=== PATIENT | female | born 1985 | race African-American/Black ===

== ENCOUNTER 2021-07-07 08:35 | Outpatient (REF) | payer OTHER, SELFPAY | END 2021-07-07 08:36 | disposition home or self-care (01) | LOC: HO.LAB 08:35 | PROVIDERS: Visit Provider Internal Medicine | DX: Z20.822 Contact with and (suspected) exposure to COVID-19 (principal) | CPT/HCPCS: C9803; U0003; U0005 ==

== ENCOUNTER 2023-05-26 09:18 | Emergency (ER) | payer OTHER, SELFPAY ==
[2023-05-26 09:26] VITALS: BP 108/78; BP 114/60; PULSE 92; PULSE 95; RESP 18; TEMP 36.5; O2SAT 100; O2SAT 98; BMI 20.5
[2023-05-26 09:29] VITALS: PULSE 69; RESP 16
[2023-05-26] MEDS: ondansetron HCL 4 MG/2 ML VIAL IVPUSH ×2 (09:45→11:01)
[2023-05-26] MEDS: diphenhydrAMINE HCL 50 MG/ML VIAL IVPUSH (09:45)
[2023-05-26] MEDS: Famotidine/PF 20 MG/2 ML VIAL IVPUSH (09:45)
[2023-05-26] MEDS: 0.9 % Sodium Chloride 1,000 ML 999 ML IV (09:45)
--- NOTE | 2023-05-26 09:59 | ED_ITS ---
HPI - General Adult General Chief complaint: Nausea/Vomiting/Diarrhea Stated complaint: Vomiting, abd pain per EMS Time Seen by Provider: 05/26/23 09:35 Source: patient Mode of arrival: ambulatory Limitations: no limitations History of Present Illness HPI narrative: 37-year-old female presents to the ED presents to ED for vomiting and generalized abdominal pain since this morning. Patient states she had some food from the barbecue may have caused symptoms. No one else at home having symptoms of venous same food. Patient denies any genitourinary symptoms. Related Data Previous Rx's Medication Instructions Recorded famotidine 20 mg tablet (Pepcid) 20 mg PO BID 10 days #20 tabs 05/26/23 Allergies Allergy/AdvReac Type Severity Reaction Status Date / Time amoxicillin [From AUGMENTIN] Allergy Unknown HIVES Verified 05/26/23 09:26 clavulanic acid Allergy Unknown HIVES Verified 05/26/23 09:26 [From AUGMENTIN] codeine [CODEINE] Allergy Unknown RASH Verified 05/26/23 09:26 Review of Systems Review of Systems: Abdominal pain and vomitting. Yes all other systems are reviewed and are negative [facility] Social History Social History Alcohol intake: current Alcohol intake frequency: a few times a week Smoked in Last 30 Days: No Use of substances other than those prescribed or required for medical reasons: Yes Substance Use Type: Marijuana Substance Use Frequency: Chronic Longstanding Advance Directives: No Physical Exam ED Vital Signs: Vital Signs - 24 hr 05/26/23 09:26 05/26/23 09:29 05/26/23 12:04 Temperature 97.7 F 98.2 F Pulse Rate 95 69 74 Respiratory Rate 18 16 16 Blood Pressure 114/60 111/51 L Pulse Oximetry 100 98 Oxygen Delivery Method Room Air Room Air Room Air 05/26/23 14:36 Temperature 97.2 F Pulse Rate 84 Respiratory Rate 12 Blood Pressure 115/64 Pulse Oximetry 97 Oxygen Delivery Method Room Air BMI result Body Mass Index 20.5 Const General: cooperative, healthy appearing, comfortable, no acute distress, well developed, alert, awake and Physically active Orientation/consciousness: oriented to person, oriented to place, oriented to time and patient oriented x3 HENMT Head: Yes normal to inspection, Yes No palpable skull fracture present, Yes norm ocephalic, Yes atraumatic and No abrasion Eyes General: appearance normal, both eyes and all related structures Neck Neck: Yes normal visual inspection, Yes full ROM, Yes no lymphadenopathy, Yes no meningeal signs, Yes trachea midline, Yes supple, No anterior neck swelling and No tender Chest Chest palpation & inspection: normal inspection of the chest and normal palpation of entire chest wall Resp Effort & Inspection: normal respiratory effort and able to speak in complete sentences Auscultation: clear to auscultation bilaterally Cardio Jugular venous distension: no JVD Heart sounds: S1 normal heart sound present and S2 normal heart sound present GI Other: Negative for any generalized abdominal tenderness on palpation. Patient retchi ng Inspection: Yes normal to inspection and No abdominal wall ecchymosis Palpation (GI): Soft to palpation, not firm, nontender, no guarding and not rigid General: No CVA tenderness and Yes no CVA tenderness Back/Spine/Pelvis Back: no CVA tenderness, No CVA tenderness and No back tenderness Skin General skin exam: no rashes or lesions noted, elasticity normal and turgor normal Neuro General: oriented to person, oriented to place, oriented to time, patient oriented x3, gait normal, tone normal, moves all extremities, Normal light touch and pain sensation, no meningeal signs, no focal motor deficits, CN's II-XI intact bilaterally and normal sensation to monofilament Extrem General: Yes normal to inspection and Yes full ROM Psych Appearance: grossly normal, well kempt and not disheveled Medications Administered Discontinued Medications Generic Name Dose Route Start Last Admin Trade Name Freq PRN Reason Stop Dose Admin Diphenhydramine HCl 50 mg 05/26/23 09:39 05/26/23 09:45 Diphenhydramine Hcl 50 Mg/Ml Vial IVPUSH 05/26/23 09:40 50 mg ONCE ONE Administration Famotidine 20 mg 05/26/23 09:39 05/26/23 09:45 Famotidine/Pf 20 Mg/2 Ml Vial IVPUSH 05/26/23 09:40 20 mg ONCE ONE Administration Haloperidol Lactate 5 mg 05/26/23 10:27 05/26/23 11:01 Haloperidol Lactate 5 Mg/Ml Vial IM 05/26/23 10:28 5 mg STAT STA Administration Sodium Chloride 1,000 mls @ 999 mls/hr 05/26/23 09:36 05/26/23 12:22 Ns IV 05/26/23 10:36 Infused .Q1H1M STA Infusion Ondansetron HCl 4 mg 05/26/23 09:36 05/26/23 09:45 Ondansetron Hcl 4 Mg/2 Ml Vial IVPUSH 05/26/23 09:37 4 mg ONCE ONE Administration Ondansetron HCl 4 mg 05/26/23 10:27 05/26/23 11:01 Ondansetron Hcl 4 Mg/2 Ml Vial IVPUSH 05/26/23 10:28 4 mg ONCE ONE Administration Medical Decision Making Medical Decision Making [facility] Narrative: 37-year-old female presents to ED for vomiting abdominal pain although there is no pinpoint tenderness on abdomen on exam. Patient states having before yesterday. Labs, Benadryl, Pepcid, Haldol and Zofran ordered. Patient later admitted there was alcohol drinking and marijuana smoking. 3:08pm; after receiving meds patient slept in the ED for multiple hours without any complaints. Abdominal exam on re-evaluation negative for any tenderness on palpation. Labs are normal. UA negative for infection and . Patient to be discharged. Presently no indication for abdominal CT scan imaging Differential Diagnosis Differential Diagnoses: The differential diagnosis associated with the presentation includes (Gastroenteritis, food poisoning, cyclic vomiting, gastritis, GERD, appendicitis, cholecystitis UTI, colitis, pancreatitis, ectopic , ovarian torsion, tubo-ovarian abscess,) Lab Data [facility] Lab Attestation statement: I reviewed the patient's lab results. 05/26/23 10:07 05/26/23 10:06 Labs: Lab Results 05/26/23 05/26/23 05/26/23 Range/Units 10:06 10:06 10:07 WBC 11.4 H (4.8-10.8) X10*3/uL RBC 4.41 (4.20-5.50) X10*6/uL Hgb 11.9 L (12.0-16.0) g/dl Hct 37.6 (37.0-47.0) % MCV 85.3 (80.0-98.0) fL MCH 27.0 (27.0-33.0) pg MCHC 31.6 (31.0-35.0) g/dl RDW 13.6 (11.0-16.0) % Plt Count 283 (160-400) X10*3/uL MPV 9.8 (9.4-12.3) fL Immature Gran % (Auto) 0.4 (0.0-0.4) % Neut % (Auto) 82.5 H (45-73) % Lymph % (Auto) 12.8 L (20-40) % [place] % (Auto) 3.4 (2-11) % Eos % (Auto) 0.3 (0-4) % Baso % (Auto) 0.6 (0-2) % Lymph # (Auto) 1.5 (1.2-4.9) X10*3/uL [place] # (Auto) 0.4 (0.1-1.2) X10*3/uL Eos # (Auto) 0.0 (0.0-0.4) X10*3/uL Baso # (Auto) 0.1 (0.0-0.2) X10*3/uL Abs Immat Gran (auto) 0.05 H (0.00-0.03) X10*3/uL Absolute Neuts (auto) 9.4 H (2.0-8.3) x10*3/uL Absolute Nucleated RBC 0.000 (0.0-0.012) X10*3/uL Nucleated RBC % (auto) 0.0 (0.0-0.2) /100WBC PT 12.1 (11.1-13.3) SEC INR 1.0 (0.9-1.1) APTT 24.2 L (26.0-36.4) SEC Sodium 144 (135-145) mmol/L Potassium 3.6 (3.3-5.1) mmol/L Chloride 111 H (96-108) mmol/L Carbon Dioxide 17 L (22-29) mmol/L Anion Gap 20 (12-20) BUN 12 (9-16) mg/dL Creatinine 0.72 (0.5-1.4) mg/dL Estim Creat Clear Calc 96.5 Estimated GFR > 60 Random Glucose 141 H (60-115) mg/dL Calcium 9.8 (8.4-10.2) mg/dL Total Bilirubin 0.5 (0.0-1.0) mg/dL AST 20 (5-31) U/L ALT 13 (0-31) U/L Alkaline Phosphatase 58 (39-117) U/L Total Protein 8.4 H (6.5-8.0) g/dL Albumin 4.5 (3.5-5.0) g/dL Lipase 27 (8-78) U/L Beta HCG, Quant < 2 mIU/mL Urine Color Urine Appearance Urine pH (5.0-9.0) Ur Specific [place] (1.005-1.025) Urine Protein (Neg-Trace) mg/dL Urine Glucose (UA) (Negative) mg/dL Urine Ketones (Negative) mg/dL Urine Blood (Negative) Urine Nitrite (Negative) Ur Leukocyte Esterase (Negative) Urine Test (NEGATIVE) 05/26/23 05/26/23 Range/Units 14:07 14:37 WBC (4.8-10.8) X10*3/uL RBC (4.20-5.50) X10*6/uL Hgb (12.0-16.0) g/dl Hct (37.0-47.0) % MCV (80.0-98.0) fL MCH (27.0-33.0) pg MCHC (31.0-35.0) g/dl RDW (11.0-16.0) % Plt Count (160-400) X10*3/uL MPV (9.4-12.3) fL Immature Gran % (Auto) (0.0-0.4) % Neut % (Auto) (45-73) % Lymph % (Auto) (20-40) % [place] % (Auto) (2-11) % Eos % (Auto) (0-4) % Baso % (Auto) (0-2) % Lymph # (Auto) (1.2-4.9) X10*3/uL [place] # (Auto) (0.1-1.2) X10*3/uL Eos # (Auto) (0.0-0.4) X10*3/uL Baso # (Auto) (0.0-0.2) X10*3/uL Abs Immat Gran (auto) (0.00-0.03) X10*3/uL Absolute Neuts (auto) (2.0-8.3) x10*3/uL Absolute Nucleated RBC (0.0-0.012) X10*3/uL Nucleated RBC % (auto) (0.0-0.2) /100WBC PT (11.1-13.3) SEC INR (0.9-1.1) APTT (26.0-36.4) SEC Sodium (135-145) mmol/L Potassium (3.3-5.1) mmol/L Chloride (96-108) mmol/L Carbon Dioxide (22-29) mmol/L Anion Gap (12-20) BUN (9-16) mg/dL Creatinine (0.5-1.4) mg/dL Estim Creat Clear Calc Estimated GFR Random Glucose (60-115) mg/dL Calcium (8.4-10.2) mg/dL Total Bilirubin (0.0-1.0) mg/dL AST (5-31) U/L ALT (0-31) U/L Alkaline Phosphatase (39-117) U/L Total Protein (6.5-8.0) g/dL Albumin (3.5-5.0) g/dL Lipase (8-78) U/L Beta HCG, Quant mIU/mL Urine Color Yellow Urine Appearance Clear Urine pH 7.5 (5.0-9.0) Ur Specific [place] 1.020 (1.005-1.025) Urine Protein Negative (Neg-Trace) mg/dL Urine Glucose (UA) Negative (Negative) mg/dL Urine Ketones 80 (Negative) mg/dL Urine Blood Negative (Negative) Urine Nitrite Negative (Negative) Ur Leukocyte Esterase Negative (Negative) Urine Test NEGATIVE (NEGATIVE) Independent Historian Clinical information obtained from an independent historian. History obtained from or confirmed by: Spouse (Partner) External Record Review External record reviewed: Other (Prior ED visit) Prescription Management I considered prescription management with: Other Discharge Plan Discharge Clinical Impression: Food poisoning, Gastroesophageal reflux disease Patient Disposition: Home, Self-Care Instructions: Gastroesophageal Reflux Disease (ED), Food Poisoning (ED), Abdominal Pain (ED) Additional Instructions: Return to the ED immediately for abdominal pain, dysuria, hematuria, flank pain, fever, chills, vaginal bleeding, inability to tolerate solid food/liquid, or any other concerning symptoms. Please follow-up with the primary care provider. Prescriptions: New famotidine [Pepcid] 20 mg tablet 20 mg PO BID 10 Days Qty: 20 0RF Stand Alone Forms: Work/School Release Interventions: ED Discharge Assessment Last Done: 05/26/23 15:31 Discharge Date/Time: 05/26/23 15:31 Print Language: Tajik
[2023-05-26 10:15] LABS: MANUAL DIFF FLAG NO
[2023-05-26 10:21] LABS: Basophils Absolute Auto 0.1 X10*3/uL (0.0-0.2); Basophils Percent Auto 0.6 % (0-2); Eosinophils Percent Auto 0.3 % (0-4); Hematocrit 37.6 % (37.0-47.0); Hemoglobin 11.9 g/dl (12.0-16.0); Imm Gran Abs Auto 0.05 X10*3/uL (0.00-0.03); Imm Gran Pct Auto 0.4 % (0.0-0.4); Lymphocytes Absolute Auto 1.5 X10*3/uL (1.2-4.9); Lymphocytes Percent Auto 12.8 % (20-40); Mean Corpuscular HGB Conc 31.6 g/dl (31.0-35.0); Mean Corpuscular Volume 85.3 fL (80.0-98.0); Mean Platelet Volume 9.8 fL (9.4-12.3); Monocytes Absolute Auto 0.4 X10*3/uL (0.1-1.2); Monocytes Percent Auto 3.4 % (2-11); Neutrophils Absolute Auto 9.4 x10*3/uL (2.0-8.3); Neutrophils Percent Auto 82.5 % (45-73); Platelet Count 283 X10*3/uL (160-400); Red Blood Count 4.41 X10*6/uL (4.20-5.50); Red Cell Distribution Width 13.6 % (11.0-16.0); White Blood Count 11.4 X10*3/uL (4.8-10.8)
[2023-05-26 10:29] LABS: Prothrombin Time 12.1 SEC (11.1-13.3)
[2023-05-26 10:32] LABS: Partial Thromboplastin Time 24.2 SEC (26.0-36.4)
[2023-05-26 10:50] LABS: Alanine Aminotransferase 13 U/L (0-31); Albumin Level 4.5 g/dL (3.5-5.0); Alkaline Phosphatase 58 U/L (39-117); Anion Gap 20 (12-20); Aspartate Amino Transferase 20 U/L (5-31); Bilirubin Total 0.5 mg/dL (0.0-1.0); Blood Urea Nitrogen 12 mg/dL (9-16); Calcium 9.8 mg/dL (8.4-10.2); Carbon Dioxide 17 mmol/L (22-29); Chloride 111 mmol/L (96-108); Creatinine Clr Calc Pharmacy 96.5; Estimated Glomerular Filt Rate > 60; Glucose Random 141 mg/dL (60-115); HCG Quantitative < 2 mIU/mL; Lipase 27 U/L (8-78); Potassium 3.6 mmol/L (3.3-5.1); Sodium 144 mmol/L (135-145); Total Protein 8.4 g/dL (6.5-8.0)
[2023-05-26] MEDS: Haloperidol Lactate 5 MG/ML VIAL IM (11:01)
[2023-05-26 12:04] VITALS: BP 111/51; PULSE 74; RESP 16; TEMP 36.8; O2SAT 98
[2023-05-26 14:15] LABS: Appearance Urine Clear; Color Urine Yellow; Glucose Urine UA Negative (Negative); Leukocyte Esterase Urine Negative (Negative); Nitrite Urine Negative (Negative); PH 7.5 (5.0-9.0); Urine Blood Negative (Negative); Urine Ketones 80 mg/dL (Negative); Urine Protein Negative (Neg-Trace)
[2023-05-26 14:36] VITALS: BP 115/64; PULSE 84; RESP 12; TEMP 36.2; O2SAT 97
[2023-05-26 14:49] LABS: UPreg QC Valid YES; Urine Pregnancy NEGATIVE (NEGATIVE)
== END 2023-05-26 15:31 | disposition home or self-care (01) ==
PROVIDERS: Physician Assistant; Emergency Provider Emergency Medicine; PCP Nurse Practitioner Family
DX: A05.9 Bacterial foodborne intoxication, unspecified (principal); K21.9 Gastro-esophageal reflux disease without esophagitis; R10.84 Generalized abdominal pain
CPT/HCPCS: 36415; 80053; 81003; 81025; 83690; 84702; 85025; 85610; 85730; 96361; 96372; 96374; 96375; 99284; J1200; J2405

== ENCOUNTER 2024-04-16 09:41 | Outpatient (AMB) | payer OTHER, SELFPAY ==
[2024-04-16 10:03] VITALS: BP 116/70; PULSE 75; O2SAT 99; BMI 20.8
--- NOTE | 2024-04-16 10:03 | A.OFFPC_ITS ---
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 She is also would like to talk about the TB test, 2 step. 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 ?? Prior PCP:? Alvin TAYLOR Last office visit/CPE:? 6 mos. CPE 1 yr Acute issue(s):? TB test Eczema ?? PMHx:? Anxiety/Depression - was on Sertraline, Difficulty concentrating SurgHx:? x2 FHx:?Mom: Breast CA age 76, HTN. Dad: Mental health issues, DM. Neice: Osteosarcoma SocHx:?Nonsmoker. EtOH Social 1-2. MJ Regularly. No other drugs. PFSH Medical History (Updated 04/16/24 @ 10:45 by Evin Membreno) delivery delivered No pertinent past medical history Family History (Updated 04/16/24 @ 10:10 by Vandana Garcia CMA) Mother Breast cancer Substance abuse in family Father Diabetes Mental health disorder Social History (Updated 04/16/24 @ 10:13 by Vandana Garcia CMA) Household Members: Family Both parents involved: Yes Caregiver staying overnight: No Housing: House Are you a primary health care analyst to a significant other at home: Yes Do you presently have visiting nurse or other home services: Yes 75 years or older and lives alone: No Alcohol intake: current Alcohol intake frequency: other Comment: socially Patient Tobacco Use Status: Never used Tobacco e-Cigarette/Vaping Use: Never Used Substance Use Type: Marijuana Special jer needs: No service: No Current occupational status: student Cognitive needs: No Hearing needs: No Vision needs: No Questionnaire PHQ-9 Over the last 2 weeks, how often have you been bothered by any of the following problems? 1. Little interest or pleasure in doing things: several days 2. Feeling down, depressed, or hopeless: several days 3. Trouble falling or staying asleep, or sleeping too much: several days 4. Feeling tired or having little energy: several days 5. Poor appetite or overeating: several days 6. Feeling bad about yourself - or that you are a failure or have let yourself o r your family down: not at all 7. Trouble concentrating on things, such as reading the newspaper or watching television: several days 8. Moving or speaking so slowly that other people could have noticed. Or the opposite - being so fidgety or restless that you have been moving around a lot more than usual: not at all 9. Thoughts that you would be better off or of hurting yourself in some way: not at all Total score: 6 Depression Screening Interpretation: Positive (Has therapist) Depression Screening Done: Yes 10706 - PHQ-9 Billing: Yes Source: Developed by Drs. Héctor Blanc, Rebecca Edwards, Pepe Quan and colleagues, with an educational darnell from [employer]. Thrive Questionnaire Date Thrive assessed: 04/16/24 I am a: Patient What is your living situation today?: I have a steady place to live Within the past 12 months, did the food you bought not last and you didn't have the money to get more?: Never true Within the past 12 months, did you worry whether your food would run out before you got money to buy more?: Never true Do you have trouble paying for medicines?: No Do you have trouble getting transportation to medical appointments?: No Do you have trouble paying your heating and electricity bill?: No Do you have trouble taking care of your child, family member or friend?: No Do you have trouble with day-to-day activities such as bathing, preparing meals, shopping, managing finances, etc.?: No Are you currently unemployed and looking for a job?: No Are you interested in more education?: No THRIVE Score: 0 AUDIT C Alcohol Use Questionnaire (AUDIT-C) 1. How often do you have a drink containing alcohol?: 2-3 times a week 2. How many drinks containing alcohol do you have on a typical day when you are drinking?: 1 or 2 3. How often do you have six or more drinks on one occasion?: Never Total Score: 3 CARA-7 AMB Questionnaire CARA-7 Date CARA - 7 assessed: 04/16/24 Feeling nervous, anxious, or on edge: 0 = Not at all Not being able to stop or control worryin = Several days Worrying too much about different things: 1 = Several days Trouble relaxin = Several days Being so restless that it is hard to sit still: 0 = Not at all Becoming easily annoyed or irritable: 1 = Several days Feeling afraid as if something awful might happen: 0 = Not at all Total CARA-7 score (0-4 normal; 5-9 mild; 10-14 moderate; 15-21 severe): 4 Source: Developed by Drs. Héctor Blanc, Rebecca Edwards, Pepe Quan and colleagues, with an educational darnell from [employer]. CARA-7 Assessment Billing CARA-7 Assessment Tool: CARA-7 Assessment 40270 Review of Systems Const Denies chills, Denies fatigue, Denies fever(s), Denies headache(s) and Denies weakness ENT Denies dizziness and Denies headache(s) Card Denies dyspnea Resp Denies cough, Denies dyspnea, Denies wheezing and Denies other (shortness of breath) Musc Denies numbness and Denies tingling Neuro Denies dizziness, Denies headache(s), Denies numbness, Denies tingling and Denies weakness Psych Reports anxiety and Reports depression Endo Denies fatigue Aller/Immun Denies wheezing Physical exam (Primary Care) Vital Signs: Last Vital Signs Pulse 75 04/16/24 10:03 BP 116/70 04/16/24 10:03 Pulse Ox 99 04/16/24 10:03 Oxygen Delivery Method Room Air 04/16/24 10:03 BMI result Body Mass Index 20.8 Tobacco/Smoking Status: Tobacco use Status Tobacco use date assessed 04/16/24 04/16/24 10:20 Patient Tobacco Use Status Never used Tobacco 04/16/24 10:20 e-Cigarette/Vaping Use Never Used 04/16/24 10:20 PHQ-9: PHQ-9 Score PHQ-9: Total score 6 04/16/24 10:21 Depression Screening Interpretation: Positive (Has therapist) Thrive Assessment: Date of Thrive Assessment Date Thrive assessed 04/16/24 04/16/24 10:20 Const General: well developed; No acute distress Nutritional Appearance: well nourished Orientation/consciousness: [facility]: Yes normocephalic and Yes atraumatic Eyes General: appearance normal, both eyes and all related structures Pupils: Equal, round and reactive pupils present EOM: EOMs intact bilaterally Resp Effort & Inspection: normal respiratory effort Auscultation: clear to auscultation bilaterally Cardio Rate: regular rate Rhythm: regular rhythm Heart sounds: S1 normal heart sound present, S2 normal heart sound present, no gallops, no murmurs and no rubs Skin Other: Rash on the posterior aspect of bilateral forearms Neuro General: patient oriented x3 and gait normal Cranial nerves: Yes Equal, round and reactive pupils present Psych Affect: normal affect Assessment and Plan Assessment & Plan (1) Anxiety with depression: Code(s): F41.8 - Other specified anxiety disorders Plan: History?of?anxiety?with?depression?and?patient?has?a?therapist. Denies?significant?symptoms?at?present Discussed?medications?briefly. Stable Follow-up?with?therapist?as?recommended (2) Eczema: Code(s): L30.9 - Dermatitis, unspecified Plan: Likely?eczema?on?bilateral?forearms?and?patient?is?child?has?eczema?as?well Will?give?her?a?script?for?a?steroid?ointment?which?he?can?use?twice?a?day?until ?better?controlled. Moisturizing?cream?daily (3) Difficulty concentrating: Code(s): R41.840 - Attention and concentration deficit Plan: Patient?notes?some?history?of?difficulty?concentrating Likely?secondary?to?anxiety?or?depression. We?discussed?that?we?could?refer?her?for?testing?in?the?future?if?she?is?having? ongoing?difficulty?with?this. (4) Screening for tuberculosis: Code(s): Z11.1 - Encounter for screening for respiratory tuberculosis Plan: Needs?TB?screening?for?a?nursing?program. Ordered (5) Laboratory exam ordered as part of routine general medical examination: Code(s): Z00.00 - Encounter for general adult medical examination without abnormal findings Plan: Check?lab Ordered?T?spot?as?above She?will?check?to?see?if?she?needs?any?other?titers?or?immunizations? for?her?nursing?program.?? Orders: Orders Comprehensive [place]. Panel Fast Today Z00.00 - Encounter for general adult medical examination without abnormal findings Lipid Panel Today Z00.00 - Encounter for general adult medical examination without abnormal findings T Spot TB Today Z11.1 - Encounter for screening for respiratory tuberculosis Microalbumin, Random (w Creat) Today I10 - Essential (primary) hypertension TSH reflex Free T4 Today Z00.00 - Encounter for general adult medical examination without abnormal findings UA and rflx microscopic Today Z00.00 - Encounter for general adult medical examination without abnormal findings Medications: New betamethasone valerate 0.1% 1 appl topical BID 14 days PRN 45 grams 2RF skin irritation Discontinued famotidine (Pepcid) Discontinued Reason: Patient no longer taking 20 mg PO BID 10 days 20 tabs 0RF Coding Level of Care Code New Pt Level 3 (47057) Diagnoses Anxiety with depression F41.8 Eczema L30.9 Difficulty concentrating R41.840 Screening for tuberculosis Z11.1 Laboratory exam ordered as part of routine general medical examination Z00.00 Additional Codes CARA-7 Assessment Billing - CARA-7 Assessment Tool: CARA-7 Assessment 39085 ([id number])
== END 2024-04-16 10:51 | disposition home or self-care (01) ==
PROVIDERS: PCP Family Medicine; Visit Provider Family Medicine
DX: L30.9 Dermatitis, unspecified (principal); R41.840 Attention and concentration deficit; F41.8 Other specified anxiety disorders; Z11.1 Encounter for screening for respiratory tuberculosis
CPT/HCPCS: 99203

== ENCOUNTER 2024-04-16 10:59 | Outpatient (REF) | payer OTHER, SELFPAY ==
[2024-04-16 14:09] LABS: Appearance Urine Turbid; Color Urine Yellow; Glucose Urine UA Negative (Negative); Leukocyte Esterase Urine Negative (Negative); Nitrite Urine Negative (Negative); PH 5.5 (5.0-9.0); Specific Gravity - Urine 1.025 (1.005-1.025); Urine Blood Negative (Negative); Urine Ketones Negative (Negative); Urine Protein Negative (Neg-Trace)
[2024-04-16 14:39] LABS: Alanine Aminotransferase 8 U/L (0-31); Albumin Level 4.2 g/dL (3.5-5.0); Alkaline Phosphatase 46 U/L (39-117); Anion Gap 11 (12-20); Aspartate Amino Transferase 16 U/L (5-31); Bilirubin Total 0.4 mg/dL (0.0-1.0); Blood Urea Nitrogen 11 mg/dL (9-16); Calcium 9.4 mg/dL (8.4-10.2); Carbon Dioxide 26 mmol/L (22-29); Chloride 106 mmol/L (96-108); Cholesterol 200 mg/dL (<200); Estimated Glomerular Filt Rate > 60; Glucose Fasting 92 mg/dL (60-99); HDL Cholesterol 74 mg/dL (>40); LDL Cholesterol Calculated 116 mg/dL (<100); Potassium 4.1 mmol/L (3.3-5.1); Sodium 139 mmol/L (135-145); Total Protein 7.7 g/dL (6.5-8.0); Triglycerides 53 mg/dL (<150)
[2024-04-16 14:41] LABS: Creatinine Urine 228.88 mg/dL
[2024-04-16 14:44] LABS: Microalbum/Creatinine Ratio Ur 4.8 ug/mg cr (<30)
[2024-04-16 14:56] LABS: TSH reflex Free T4 1.21 uIU/mL (0.32-4.0)
[2024-04-18 22:48] LABS: TS Negative Control Passed; TS Panel A 0; TS Panel B 0; TS Positive Control Passed; TSpotTB Negative (Negative)
== END 2024-04-16 11:00 | disposition home or self-care (01) ==
LOC: HO.WFDLDS 10:59
PROVIDERS: Visit Provider Family Medicine
DX: Z00.00 Encounter for general adult medical examination without abnormal findings (principal); I10 Essential (primary) hypertension; Z11.1 Encounter for screening for respiratory tuberculosis
CPT/HCPCS: 36415; 80053; 80061; 81003; 82043; 82570; 84443; 86481

== ENCOUNTER 2024-05-03 13:52 | Outpatient (AMB) | payer OTHER, SELFPAY ==
[2024-05-03 13:55] VITALS: BP 112/60; PULSE 77; O2SAT 96; BMI 22.0
--- NOTE | 2024-05-03 13:55 | A.OFFPC_ITS ---
Vital Signs 05/03/24 13:55 Height 5 ft 3 in Weight 124 lb 4 oz BMI 22.0 BP 112/60 Blood Pressure Location Lt brachial Pulse 77 Pulse Source Pulse Oximeter Pulse Oximetry (%) 96 Oxygen Delivery Method Room Air Intake Visit Reasons: CPE with f/u labs and health maint. 30 mins Intake Note: Patient is here for her physical and is concerned about right foot ha's neuroma. Allergies amoxicillin [From AUGMENTIN] Allergy (Unknown, Verified 05/03/24 13:59) HIVES clavulanic acid [From AUGMENTIN] Allergy (Unknown, Verified 05/03/24 13:59) HIVES codeine [CODEINE] Allergy (Unknown, Verified 05/03/24 13:59) RASH Tobacco use date assessed: 04/16/24 Dental Screening Dental Screen Date: 04/16/24 HPI CPE with f/u labs and health maint. 30 mins HPI Details 38 y/o female presents for a CPE with f/ u labs and health maintenance. Labs were drawn 04/16/24. Reviewed labs with pt. Triglycerides 53. TC 200. LDL 116. HDL 74. Pt reports GERD. PFSH Medical History delivery delivered No pertinent past medical history Family History Mother Breast cancer Substance abuse in family Father Diabetes Mental health disorder Social History Household Members: Family Both parents involved: Yes Caregiver staying overnight: No Housing: House Are you a primary career agent to a significant other at home: Yes Do you presently have visiting nurse or other home services: Yes 75 years or older and lives alone: No Alcohol intake: current Alcohol intake frequency: other Comment: socially Patient Tobacco Use Status: Never used Tobacco e-Cigarette/Vaping Use: Never Used Substance Use Type: Marijuana Special jer needs: No service: No Current occupational status: student Cognitive needs: No Hearing needs: No Vision needs: No Questionnaire PHQ-9 Over the last 2 weeks, how often have you been bothered by any of the following problems? 1. Little interest or pleasure in doing things: not at all 2. Feeling down, depressed, or hopeless: not at all 3. Trouble falling or staying asleep, or sleeping too much: not at all 4. Feeling tired or having little energy: not at all 5. Poor appetite or overeating: not at all 6. Feeling bad about yourself - or that you are a failure or have let yourself or your family down: not at all 7. Trouble concentrating on things, such as reading the newspaper or watching television: not at all 8. Moving or speaking so slowly that other people could have noticed. Or the opposite - being so fidgety or restless that you have been moving around a lot more than usual: not at all 9. Thoughts that you would be better off or of hurting yourself in some way: not at all Total score: 0 Depression Screening Interpretation: Negative Depression Screening Done: Yes Source: Developed by Drs. Héctor Blanc, Rebecca Edwards, Pepe Quan and colleagues, with an educational darnell from [employer]. Thrive Questionnaire Date Thrive assessed: 04/16/24 I am a: Patient What is your living situation today?: I have a steady place to live Within the past 12 months, did the food you bought not last and you didn't have the money to get more?: Never true Within the past 12 months, did you worry whether your food would run out before you got money to buy more?: Never true Do you have trouble paying for medicines?: No Do you have trouble getting transportation to medical appointments?: No Do you have trouble paying your heating and electricity bill?: No Do you have trouble taking care of your child, family member or friend?: No Do you have trouble with day-to-day activities such as bathing, preparing meals, shopping, managing finances, etc.?: No Are you currently unemployed and looking for a job?: No Are you interested in more education?: Yes THRIVE Score: 0 AUDIT C Alcohol Use Questionnaire (AUDIT-C) 1. How often do you have a drink containing alcohol?: 2-4 times a month 2. How many drinks containing alcohol do you have on a typical day when you are drinking?: 1 or 2 3. How often do you have six or more drinks on one occasion?: Never Total Score: 2 CARA-7 AMB Questionnaire CARA-7 Date CARA - 7 assessed: 05/03/24 Feeling nervous, anxious, or on edge: 1 = Several days Not being able to stop or control worryin = Not at all Worrying too much about different things: 1 = Several days Trouble relaxin = Not at all Being so restless that it is hard to sit still: 0 = Not at all Becoming easily annoyed or irritable: 1 = Several days Feeling afraid as if something awful might happen: 0 = Not at all Total CARA-7 score (0-4 normal; 5-9 mild; 10-14 moderate; 15-21 severe): 3 Source: Developed by Drs. Héctor Blanc, Rebecca Edwards, Pepe Quan and colleagues, with an educational darnell from [employer]. Review of Systems Const Denies chills, Denies fatigue, Denies fever(s), Denies headache(s) and Denies weakness Eyes Denies change in vision ENT Denies dizziness, Denies headache(s), Denies hearing loss, Denies nasal co ngestion, Denies sinus pain, Denies sinus pressure and Denies sore throat Card Denies chest pain, Denies lightheadedness, Denies dyspnea and Denies other (palpitations) Resp Denies cough, Denies dyspnea and Denies wheezing GI Denies abdominal pain, Denies melena, Denies hematochezia, Denies change in bowel habits, Denies dyspepsia and Denies nausea Denies hematuria and Denies dysuria Musc Denies abnormal gait, Denies myalgias, Denies arthralgias, Denies numbness and D enies tingling Skin/Breast Denies rash, Denies unusual bruising and Denies wounds Neuro Denies abnormal gait, Denies dizziness, Denies headache(s), Denies memory loss, Denies numbness, Denies Sensory deficit (Neuro), Denies tingling and Denies weakness Psych Denies anxiety, Denies depression and Denies memory loss Endo Denies cold intolerance, Denies fatigue, Denies heat intolerance, Denies polydipsia and Denies polyuria Jackson/Lymph Denies easy bleeding and Denies easy bruising Aller/Immun Denies wheezing Physical exam (Primary Care) Vital Signs: Last Vital Signs Pulse 77 05/03/24 13:55 BP 112/60 05/03/24 13:55 Pulse Ox 96 05/03/24 13:55 Oxygen Delivery Method Room Air 05/03/24 13:55 BMI result Body Mass Index 22.0 Tobacco/Smoking Status: Tobacco use Status Tobacco use date assessed 04/16/24 05/03/24 14:08 Patient Tobacco Use Status Never used Tobacco 05/03/24 14:08 e-Cigarette/Vaping Use Never Used 05/03/24 14:08 PHQ-9: PHQ-9 Score PHQ-9: Total score 0 05/03/24 15:02 Depression Screening Interpretation: Negative Thrive Assessment: Date of Thrive Assessment Date Thrive assessed 04/16/24 05/03/24 14:08 Const General: no acute distress, well developed, alert and awake Nutritional Appearance: well nourished Orientation/consciousness: patient oriented x3 HENMT Head: Yes normocephalic and Yes atraumatic Ears: hearing grossly normal bilaterally and TM's normal bilaterally General nose exam: Normal external nose present and Normal nares present Mouth: Normal oral and palatal mucosa present and moist mucous membranes Teeth and gingiva: dentition normal Throat: Yes posterior oropharynx normal Eyes General: appearance normal, both eyes and all related structures Pupils: Equal, round and reactive pupils present and Pupil accommodation reflex normal EOM: EOMs intact bilaterally Neck Neck: Yes normal visual inspection, Yes no lymphadenopathy and Yes trachea midline Thyroid: Thyroid normal Carotids: no bruits Lymphatic: no lymphadenopathy noted Chest Chest palpation & inspection: normal inspection of the chest Resp Effort & Inspection: normal respiratory effort Auscultation: clear to auscultation bilaterally Cardio Rate: regular rate Rhythm: regular rhythm Heart sounds: S1 normal heart sound present, S2 normal heart sound present, no gallops, no murmurs and no rubs Bruits: no abdominal aortic bruits and no carotid bruits GI Palpation (GI): No Abdominal aortic bruit present, Soft to palpation, nontender, No hepatosplenomegaly present and No Rebound tenderness present Auscultation: normal bowel sounds General: Yes no CVA tenderness Back/Spine/Pelvis Back: no CVA tenderness Cervical Spine: cervical ROM normal and No Cervical spine tenderness Thoracic/Lumbar Spine: thoraco-lumbar ROM normal, No pain with thoraco-lumbar ROM, No thoracic spinal tenderness and No lumbar spinal tenderness Skin Lesions: no lesions Rashes: no rashes Trauma: no lacerations or abrasions Wounds: no wounds Nails: normal Neuro General: patient oriented x3 Cranial nerves: Yes Equal, round and reactive pupils present Cognition (Neuro): normal cognition Gait exam (Neuro): Normal gait present Motor exam (neuro): 5/5 motor strength present throughout Sensory Exam: No Sensory deficit (Neuro) Deep tendon reflexes (DTR's): Right patellar reflex intensity grade: 2+ and Left patellar reflex intensity grade: 2+ Extrem General: Yes normal to inspection and No edema Psych Appearance: grossly normal Affect: normal affect Attitude: cooperative Thought process: Normal thought process present Assessment and Plan Assessment & Plan (1) Adult general medical exam: Code(s): Z00.00 - Encounter for general adult medical examination without abnormal findings Plan: 38-year-old?female?presents?for?complete?physical?exam Encouraged?healthy?diet?with?active?lifestyle?and?plenty?of?exercise (2) Hypercholesterolemia: Code(s): E78.00 - Pure hypercholesterolemia, unspecified Plan: Mildly?elevated?LDL?cholesterol.??HDL?ratios?are?good. No?indication?for?medicine?at?this?time.??I?did?encouraged?a?diet?lower?in?satur ated?fats?and?cholesterol (3) Gastroesophageal reflux disease: Code(s): K21.9 - Gastro-esophageal reflux disease without esophagitis Plan: Frequent?reflux?symptoms Will?give?her?a?script?for?omeprazole?daily. Referred?to?Gastroenterology (4) Foot pain: Code(s): M79.673 - Pain in unspecified foot Plan: Right?foot?pain. ?No?palpable?lesion?though?she?does?have?pain?with?palpation Referred?to?Podiatry Avoid?heavy?foot?gear?or?constrictive?shoes. 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 T?spot?TB?test?is?negative (7) Breast cancer screening by mammogram: Code(s): Z12.31 - Encounter for screening mammogram for malignant neoplasm of breast Plan: FHx Breast CA and getting mammograms?through?[facility]; already?started?screening. Orders: Referrals Gastroenterology Referral K21.9 - Gastro-esophageal reflux disease without esophagitis Podiatry Referral M79.673 - Pain in unspecified foot Medications: New omeprazole 20 mg PO DAILY 30 days 30 caps 2RF Coding Level of Care Code Est Pt Level 3 (37876) New Pt Prev Care 18-39yr(44286 Diagnoses Adult general medical exam Z00.00 Hypercholesterolemia E78.00 Gastroesophageal reflux disease K21.9 Foot pain M79.673 Screening for cervical cancer Z12.4 Screening for tuberculosis Z11.1 Breast cancer screening by mammogram Z12.31
== END 2024-05-03 15:22 | disposition home or self-care (01) ==
PROVIDERS: PCP Family Medicine; Visit Provider Family Medicine
DX: Z00.00 Encounter for general adult medical examination without abnormal findings (principal); Z11.1 Encounter for screening for respiratory tuberculosis; Z12.31 Encounter for screening mammogram for malignant neoplasm of breast; E78.00 Pure hypercholesterolemia, unspecified; K21.9 Gastro-esophageal reflux disease without esophagitis; M79.671 Pain in right foot
CPT/HCPCS: 99213; 99395

== ENCOUNTER 2024-05-29 14:49 | Outpatient (AMB) | payer OTHER, SELFPAY ==
--- NOTE | 2024-05-29 15:10 | MHC.OFFWIV ---
Intake Vital Signs 05/29/24 15:11 Height 5 ft 3 in Weight 130 lb BMI 23.0 BP 116/80 Blood Pressure Location Lt brachial Position Sitting Pulse 68 Pulse Source Pulse Oximeter Temp 98.3 F Temp Source Oral Pulse Oximetry (%) 98 Oxygen Delivery Method Room Air Intake Visit Reasons: constant dizziness Intake Note: pt c/o ongoing dizziness. Started about a week and a half ago Patient Tobacco Use Status: Never used Tobacco Allergies amoxicillin [From AUGMENTIN] Allergy (Unknown, Verified 05/29/24 15:11) HIVES clavulanic acid [From AUGMENTIN] Allergy (Unknown, Verified 05/29/24 15:11) HIVES codeine [CODEINE] Allergy (Unknown, Verified 05/29/24 15:11) RASH Do you need a note to return to daycare/school/sports/work: No HPI constant dizziness HPI Details This note is constructed using voice recognition software. While every effort has been made to ensure accuracy, radio electronics officer errors may have been included. The patient is a 38 year old female who presents to the clinic today with dizziness for the past week and a half. She denies confusion, difficulty walking, vomiting, does report nausea. She has not hit her head. She does not have headache. She has not had this before. She does feel some pressure in her right ear. Symptoms worse when she turns her head. Feels like the room spins around her and stopped. Mostly the symptoms have waxed and waned in intensity. [facility] Medical History delivery delivered No pertinent past medical history Family History Mother Breast cancer Substance abuse in family Father Diabetes Mental health disorder Social History Household Members: Family Both parents involved: Yes Caregiver staying overnight: No Housing: House Are you a primary care manager cna to a significant other at home: Yes Do you presently have visiting nurse or other home services: Yes 75 years or older and lives alone: No Alcohol intake: current Alcohol intake frequency: other Comment: socially Patient Tobacco Use Status: Never used Tobacco e-Cigarette/Vaping Use: Never Used Substance Use Type: Marijuana Special jer needs: No service: No Current occupational status: student Cognitive needs: No Hearing needs: No Vision needs: No Review of Systems Const All systems reviewed & are unremarkable except as noted in HPI and below Physical Exam Vital Signs: Last Vital Signs Temp 98.3 F 05/29/24 15:11 Pulse 68 05/29/24 15:11 BP 116/80 05/29/24 15:11 Pulse Ox 98 05/29/24 15:11 Oxygen Delivery Method Room Air 05/29/24 15:11 BMI result Body Mass Index 23.0 Const General: cooperative, healthy appearing, comfortable, no acute distress and alert Orientation/consciousness: patient oriented x3 Limitations: no limitations HEENT Head: Yes normal to inspection and Yes normocephalic Ears: hearing grossly normal bilaterally and TM abnormal retracted on the right General nose exam: Normal external nose present Face and sinus: Yes normal facial exam and Yes sinuses nontender Mouth: Normal oral and palatal mucosa present and tongue normal Teeth and gingiva: dentition normal Throat: Yes posterior oropharynx normal Eyes Other: Horizontal nystagmus present. EOMI. General: appearance normal, both eyes and all related structures Neck Neck: Yes normal visual inspection, Yes full ROM and Yes no lymphadenopathy Resp Effort & Inspection: normal respiratory effort and able to speak in complete sentences Auscultation: clear to auscultation bilaterally Cardio Jugular venous distension: no JVD Palpation: normal PMI Rate: regular rate Heart sounds: S1 normal heart sound present, S2 normal heart sound present, no click, no gallops, no murmurs and no rubs GI Inspection: Yes normal to inspection Palpation (GI): Soft to palpation and nontender Percussion: Yes normal to percussion Auscultation: normal bowel sounds Skin General skin exam: no rashes or lesions noted, elasticity normal and turgor normal Neuro General: patient oriented x3 Extrem General: Yes normal to inspection, Yes full ROM, Yes capillary refill normal and Yes normal exam except as noted Psych Appearance: grossly normal Mental Status: mental status grossly normal Speech and movement: Normal speech and movement present Affect: normal affect Assessment & Plan Assessment & Plan (1) BPPV (benign paroxysmal positional vertigo): Code(s): H81.10 - Benign paroxysmal vertigo, unspecified ear Qualifiers: Laterality: unspecified laterality Qualified Code(s): H81.10 - Benign paroxysmal vertigo, unspecified ear Plan: Reviewed red flag symptoms including confusion, unrelenting vomiting, or difficulty walking which would warrant emergency room evaluation. Given lack of red flag symptoms, additional imaging was not advised at this time. We will treat symptomatically with meclizine, as well as ondansetron for nausea. Advised follow up with worsening symptoms or failure to resolve. Patient may also consider have [employer] video on YouTube, for consideration of resolution of any calcium deposit. Plan See above for full details and plan. Medications: New meclizine 1 to 2 tablets orally 3 times a day PRN; 15 tabs 0RF dizziness 3 days ondansetron 4 mg PO Q8H PRN 9 tabs 0RF nausea and vomiting 3 days Coding Level of Care Code Est Pt Level 3 (07391) Diagnoses Benign paroxysmal positional vertigo, unspecified laterality H81.10 Laterality: unspecified laterality
[2024-05-29 15:11] VITALS: BP 116/80; PULSE 68; TEMP 36.8; O2SAT 98; BMI 23.0
== END 2024-05-29 15:56 | disposition home or self-care (01) ==
PROVIDERS: PCP Family Medicine; Visit Provider Registered Nurse
DX: H81.10 Benign paroxysmal vertigo, unspecified ear (principal)
CPT/HCPCS: 99213

== ENCOUNTER 2024-11-08 17:03 | Emergency (ER) | payer OTHER, SELFPAY ==
[2024-11-08 17:23] VITALS: BP 155/100; PULSE 114; RESP 16; TEMP 37.2; O2SAT 100; BMI 22.6
--- NOTE | 2024-11-08 18:47 | ED_ITS ---
HPI - General Adult General Chief complaint: Extremity Problem Stated complaint: ?pinched nerve R foot Time Seen by Provider: 11/08/24 18:47 Source: patient, RN notes reviewed and old records reviewed Mode of arrival: ambulatory Limitations: no limitations History of Present Illness ED Provider: Simona WALTERS narrative: [age] old female presents for evaluation of right foot pain. 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 She states that she had been following with Podiatry however her office closed She reports that she has been calling numerous times to try and get a referral to a different office but has been unable to do so. She states that her pain has been well controlled with cortisone injections to the dorsum of the right foot She states that she is 2 months overdue due to her podiatry office being closed in her pain is unbearable She denies any specific trauma to the area Related Data Home Medications ?Medication ?Instructions ?Recorded ?Confirmed omeprazole 20 mg capsule,delayed 20 mg PO DAILY PRN 05/29/24 release Previous Rx's ?Medication ?Instructions ?Recorded betamethasone valerate 0.1 % 1 appl topical BID PRN skin 04/16/24 topical ointment irritation 14 days #45 grams meclizine 12.5 mg tablet See Rx Instructions PO TID PRN 05/29/24 dizziness 3 days #15 tabs ondansetron 4 mg disintegrating 4 mg PO Q8H PRN nausea and 05/29/24 tablet vomiting 3 days #9 tabs tramadol 50 mg tablet 50 mg PO Q8H PRN severe pain 11/08/24 (scale score 7-10) #12 tabs Allergies Allergy/AdvReac Type Severity Reaction Status Date / Time amoxicillin [From AUGMENTIN] Allergy Unknown HIVES Verified 11/08/24 17:25 clavulanic acid Allergy Unknown HIVES Verified 11/08/24 17:25 [From AUGMENTIN] codeine [CODEINE] Allergy Unknown RASH Verified 11/08/24 17:25 Review of Systems Musculoskeletal: Musculoskeletal: Reports arthralgias PMFSH Past Medical History Medical History delivery delivered No pertinent past medical history Family History Family History Mother Breast cancer Substance abuse in family Father Diabetes Mental health disorder Social History Social History Household Members: Family Housing: House Are you a primary manager medicare to a significant other at home: Yes Do you presently have visiting nurse or other home services: Yes Alcohol intake: current Alcohol intake frequency: other Comment: socially Patient Tobacco Use Status: Never used Tobacco e-Cigarette/Vaping Use: Never Used Substance Use Type: Marijuana Special jer needs: No Advance Directives: No Advance Directives Information Provided: No service: No Current occupational status: student Cognitive needs: No Hearing needs: No Vision needs: No Physical Exam ED Vital Signs: Vital Signs - 24 hr 11/08/24 17:23 Temperature 99.0 F Pulse Rate 114 H Respiratory Rate 16 Blood Pressure 155/100 H Pulse Oximetry 100 Oxygen Delivery Method Room Air BMI result Body Mass Index 22.6 Const General: healthy appearing, no acute distress, alert and awake Nutritional Appearance: well nourished Orientation/consciousness: patient oriented x3 HENMT Head: Yes normocephalic and Yes atraumatic Eyes Eyelids: Yes eyelids normal Conjunctivae: conjunctivae normal Sclerae: sclerae normal Corneas: corneas normal Pupils: Equal, round and reactive pupils present EOM: EOMs intact bilaterally Neck Neck: Yes full ROM Resp Effort & Inspection: normal respiratory effort, able to speak in complete sentences and not labored Cardio Rate: regular rate Rhythm: regular rhythm Skin General skin exam: elasticity normal Neuro General: patient oriented x3 Cranial nerves: Yes Equal, round and reactive pupils present and Yes Bilaterally intact EOM present Cognition (Neuro): normal cognition Extrem Other: Patient's right foot does not show any obvious abnormalities, no areas of edema, no erythema, no open wounds or lesions. 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 She denies any trauma to the area reports unbearable pain due to missing cortisone injections. We will treat her pain with Toradol, she will be referred to Podiatry. There is no calf pain or swelling Differential Diagnosis Differential Diagnoses: The differential diagnosis associated with the presentation includes Pastor's neuroma Arthritis Ganglion cyst Plantar fasciitis Arthritis Gout Discharge Plan Discharge Clinical Impression: Acute pain of right foot Patient Disposition: Home, Self-Care Instructions: [facility]roma (ED) Additional Instructions: Follow-up with podiatry when able, I attached to different referrals. Use ibuprofen/Tylenol as needed for pain. You may use tramadol for more severe breakthrough pain This may make you drowsy, do not drink alcohol or drive after taking it Prescriptions: New tramadol 50 mg tablet 50 mg PO Q8H PRN (Reason: severe pain (scale score 7-10)) Qty: 12 0RF No Action omeprazole 20 mg capsule,delayed release(DR/EC) 20 mg PO DAILY PRN meclizine 12.5 mg tablet See Rx Instructions PO TID PRN (Reason: dizziness) 3 Days Qty: 15 0RF Rx Instructions: 1 to 2 tablets orally 3 times a day PRN; ondansetron 4 mg tablet,disintegrating 4 mg PO Q8H PRN (Reason: nausea and vomiting) 3 Days Qty: 9 0RF betamethasone valerate 0.1 % ointment 1 appl topical BID PRN (Reason: skin irritation) 14 Days Qty: 45 2RF Referrals: Damien Rizzo DPM [Physician] - Tay Lopes MD [Physician] - (neuroma of foot) Print Language: Danish
[2024-11-08 19:31] VITALS: BP 00/00; PULSE 0; RESP 0; TEMP -17.7; TEMP 0
== END 2024-11-08 19:32 | disposition home or self-care (01) ==
PROVIDERS: Emergency Provider Internal Medicine; PCP Family Medicine
DX: M79.671 Pain in right foot (principal)
CPT/HCPCS: 99282; 99283

== ENCOUNTER 2024-12-04 08:01 | Outpatient (REF) | payer OTHER, SELFPAY ==
[2024-12-04 12:37] LABS: Influenza A PCR NEGATIVE (Negative); Influenza B PCR NEGATIVE (Negative); Resp Syncy Virus RNA Qual PCR NEGATIVE (Negative); SARS COV2 PCR INHOUSE POSITIVE (Negative)
== END 2024-12-04 08:02 | disposition home or self-care (01) ==
LOC: HO.LAB 08:01
PROVIDERS: PCP Family Medicine; Visit Provider Physician Assistant
DX: B34.9 Viral infection, unspecified (principal); J06.9 Acute upper respiratory infection, unspecified
CPT/HCPCS: 0241U; 99212

== ENCOUNTER 2024-12-04 08:01 | Outpatient (AMB) | payer OTHER, SELFPAY ==
--- OUTSIDE RECORDS SUMMARY | 2024-12-04 08:02 | XMS_ITS | Data Portability ---
Author Organization L[facility] Chen s, [address] Address [address] [place] [address] Care Team Providers Care Collaborative Physician Name Role Phone OMEGA TRAYLORNA Primary Care Provider Assessment No assessment recorded. Plan of Treatment Reminders Order Date Submit Date Provider Last Modified By Organization Details Last Modified Time Details Appointments None record ed. Lab None record ed. Referral None record ed. Procedures None record ed. Surgeries None record ed. Imaging XR, foot, 3 or more view - left 023 05/01/20 23 [facility], [address] [facility], [place], [address], 17:37:46 Medication Orders None record ed. Patient TargetsNo targets recorded. Patient Instructions Encounter Date Encounter Id Patient Instructions Last Modified By Organization Details Last Modified Time 05/01/2023 [id number] broken toe: care instructions [email or web address] Not available 05/01/2023 16:30:11 toe fracture: rehab exercises Not available 05/01/2023 16:30:11 learning about rice (rest, ice, compression, and elevation) [email or web address] Not available 05/01/2023 16:11:38 contusion: care instructions [email or web address] Not available 05/01/2023 16:31:31 Keep the toes twila taped as instructed for 4-6 weeks. Use the cast shoe while ambulating. Elevate your foot as much as possible. See printed instructions. Over the counter tylenol or ibuprofen may be taken for pain per package instructions if needed. Follow-up with your doctor in 1-2 weeks. Seek Emergency Medical evaluation for any worsening symptoms. [email or web address] Not available 05/01/2023 16:38:17 Reason for Referral None Reported. Results Created Date Observation Date Name Description Value Unit Range Abnormal Flag Note LastModifiedBy Organization Detail LastModifiedTime 05/01/2005/01/2023 XR, foot, 3 or more view No observ ation record ed. [facility] [address] [place], [address], 05/01/2023 17:46:26 Result Notes None recorded. Problems No Known Problems Procedures Surgical History Date Name Laterality Status Provider Name and Address Organization Details Recorded Time 05/01/2023 TWILA TAPE completed Veronica Martin MD [address] [place], [address], [place] - [facility] 05/01/2023 16:31:12 Imaging Results Imaging Date Name Status LastModified by Organiz ation Details LastModified Time 05/01/2023 XR, foot, 3 or more view completed [email or web address] [facility] [address] [place], [address], 05/01/2023 17:46:26 Procedure Notes None recorded. Medical Equipment None Reported. Allergies Allergen ID Allergen Name Allergen Category Reaction Reaction Severity Criticality Documentation Date Start Date Code Code System Note Provider Name and Address Organization Details Recorded Time 833005 codeine medicatio n Not available Not available Not available 05/01/2023 2670 RxNorm Alexandra gill PA - [facility] 3 14:54:20 Medications Name Sig Start Date Stop Date Status Note LastModified by Organization Details LastModified Time sertraline active Not Available Not Av ailable Not Available Vitals Date Recorded Body height Body mass index (BMI) Body weight Pain severity - 0-10 verbal numeric rating [Score] - Reported Respiratory rate Body temperature Heart rate Systolic blood pressure Diastolic blood pressure Provider Name and Address Organization Details Last Updated DateTime 3 160.02 cm 23 kg/m2 58542.0 1 g 6 18 /min 98.2 [degF] 61 /min 108 mm[Hg] 76 mm[Hg] Alexandra Cain PA - [facility] 14:56:32 Social History Question Answer Notes LastModified by Organizat ion Details LastModified Time Tobacco Smoking Status Never Smoker Alexandra gill PA [facility] 05/01/2023 14:55:04 What Is Your Level Of Alcohol Consumption? Occasional Information not available 05/01/2023 How Many Times Per Week Do You Consume Alcohol? 1-2 Times Per Week Information not available 05/01/2023 Which Illicit Or Recreational Drugs Have You Used? Marijuana Information not available 05/01/2023 Do You Use Any Illicit Or Recreational Drugs? Yes Information not available 05/01/2023 Have You Recently Traveled Abroad? No Information not available 05/01/2023 Do You Or Have You Ever Used Any Other Forms Of Tobacco Or Nicotine? No Information not available 05/01/2023 Sex: Unknown Functional Status None recorded. Mental Status None recorded. Family History Relationship Description Onset Age of this Age Resolved Age Notes LastModified by Organization Details LastModified Time Father No current problems or disability [email or web address] Not available 05/01 14:54:48 Mother No current problems or disability [email or web address] Not available 05/01 14:54:48 Medical History No medical history recorded. Gynecological History Statement/Question Response Date of LMP 04/22/2023 Is there any chance of ? No Obstetrics History GPAL:G 0 P 0 0 0 0 Immunizations Vaccine Type Date Status Note Provider Nam e and Address Organization Details Recorded Time Influenza, MDCK, quadrivalent, PF 07/17/2019 completed Alexandra gill PA - [facility] 05/01/2023 14:54:11 COVID-19, mRNA, LNP-S, PF, 30 mcg/0.3 mL dose 03/13/2021 completed Alexandra gill PA - [facility] 05/01/2023 14:54:11 COVID-19, mRNA, LNP-S, PF, 30 mcg/0.3 mL dose 04/03/2021 completed Alexandra gill PA - [facility] 05/01/2023 14:54:11 Tdap 02/20/2020 completed L[facility] 05/01/2023 14:54:12 Influenza, split virus, quadrivalent, PF 09/07/2016 completed LYLE [facility] 05/01/2023 14:54:12 Past Encounters Encounter ID Performer Location Encounter Start Date Encounter Closed Date Diagnosis/Indication Diagnosis SNOMED-CT Code Diagnosis ICD10 Code Diagnosis Note [id number] [facility] [facility] [place] [address] 11/11/2017 14:01:59 11/11/2017 15:08:44 [id number] [address] [place] [address] 12/18/2018 11:03:27 12/18/2018 11:46:55 [id number] [facility] [place], [place] [address] [address] 10/03/2018 09:25:19 10/03/2018 09:55:21 [id number] [address] [place] [address] 11/06/2016 11:29:45 11/06/2016 12:02:36 [id number] [address] [place] [address] 01/22/2016 19:46:17 01/22/2016 20:33:37 [id number] [address] [place] [address] 12/13/2018 11:05:40 12/13/2018 11:34:41 [id number] Veronica Martin MD [address] [place] [address] 05/01/2023 13:51:04 05/01/2023 16:40:19 Contusion of left foot [id number] S90.32XA Closed fra cture proximal phalanx, toe 521873223 S92.912A Health Concerns Section Related Observation LastModified by Organization Detai ls LastModified Time None Recorded Concern Status LastModified by Organization Details LastModified Time None Recorded Advance Directives Directive None Recorded Payers Encounter Date Sequence Insurance Name Policy Number Policy Chacon Covered Member ID Chacon Member ID Guarantor Name 05/01/2023 1 [facility] (POS) [id number] Suly Lanza [id number] Suly Lanza Notes Date Note Type Note Provider Name and Address Organization Details Recorded Time 3 text/html Foot / AnkleReported bypatient.source of patient informationInformation obtained from patient; Patient arrived at Urgent Care ambulatory Location:left Probleminjury; swelling Severity:moderate Duration:1 days Context:Struck left 5th toe/foot on doorway. Associated Symptoms:no weakness; no numbness; no tingling; no redness;swelling;ecchymosis Aggravating factors:extension; flexion; standing; walking Alleviating factors:rest; elevation Assistive devicesNone. Previous InjuryNo prior injury to affected body part Previous Treatmentnone Prior Imaging:noneNotes:37 year old female presenting for evaluation of left dorsal distal and lateral foot and left 5th toe pain, bruising and swelling after accidentally hitting her foot on a doorway yesterday. No numbness or weakness of the extremity but the pain is worse with palpation, movement and weight bearing. Veronica Martin MD [address] [place], [address], [place] - [facility] 05/01/2023 16:40:02 OBGyn Episode No OBEpisode recorded.
--- NOTE | 2024-12-04 09:02 | MHC.OFFWIV ---
Intake Vital Signs 12/04/24 09:03 Height 5 ft 3 in Weight 125 lb BMI 22.1 BP 124/78 Blood Pressure Location Lt brachial Position Sitting Respiration 20 Pulse 87 Pulse Source Pulse Oximeter Temp 98.7 F Temp Source Oral Pulse Oximetry (%) 97 Oxygen Delivery Method Room Air Intake Visit Reasons: EP Flu symptoms Intake Note: Pt is here today for a walk in visit. Pt c/o body aches, headaches, sore throat diarrhea, cough. Patient Tobacco Use Status: Never used Tobacco Allergies amoxicillin [From AUGMENTIN] Allergy (Unknown, Verified 12/04/24 09:07) HIVES clavulanic acid [From AUGMENTIN] Allergy (Unknown, Verified 12/04/24 09:07) HIVES codeine [CODEINE] Allergy (Unknown, Verified 12/04/24 09:07) RASH Do you need a note to return to daycare/school/sports/work: Yes HPI HPI Comments History of Present Illness Details History - The patient is a 39-year-old female presenting for evaluation and management of symptoms associated with an upper respiratory viral infection. - Onset followed a COVID-19 outbreak at her workplace; however, multiple at-home COVID-19 tests were negative. - Symptoms include diarrhea, cough, nasal congestion, sore throat, persistent headache, and body aches, with mild shortness of breath post-coughing. - No fevers have been recorded, but asthma has been managed with an albuterol inhaler which she has at home. - Notable symptoms of clogged ears without pain, and transient cervical lymphadenopathy were present. 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 Physical Exam General: Cooperative, healthy appearing, comfortable and no acute distress Orientation/consciousness: Patient oriented x3 Limitations: No limitations Head: Normal to inspection Ears: Hearing grossly normal bilaterally, external ears normal and TM's normal bilaterally, Nose: Normal external nose present, Normal nares present and No nasal discharge present Face and sinus: Normal facial exam and Yes sinuses nontender Mouth: Normal oral and palatal mucosa present and moist mucous membranes Throat: Yes tonsils normal, Yes uvula midline. Posterior oropharynx erythema, no exudates Eyes: Appearance normal, both eyes and all related structures Neck: Normal visual inspection, no lymphadenopathy Respiratory: Clear to auscultation bilaterally. Normal respiratory effort, able to speak in complete sentences, Actively coughing, no respiratory distress, not tachypneic, no tripod positioning and no use of accessory muscles, slight shortness of breath after coughing fits Cardiovascular: Regular rate and rhythm. 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: Yes Do you presently have visiting nurse or other home services: Yes 75 years or older and lives alone: No Alcohol intake: current Alcohol intake frequency: other Comment: socially Patient Tobacco Use Status: Never used Tobacco e-Cigarette/Vaping Use: Never Used Substance Use Type: Marijuana Special jer needs: No service: No Current occupational status: student Cognitive needs: No Hearing needs: No Vision needs: No Review of Systems Const All systems reviewed & are unremarkable except as noted in HPI and below Physical Exam Vital Signs: Last Vital Signs Temp 98.7 F 12/04/24 09:03 Pulse 87 12/04/24 09:03 Resp 20 12/04/24 09:03 BP 124/78 12/04/24 09:03 Pulse Ox 97 12/04/24 09:03 Oxygen Delivery Method Room Air 12/04/24 09:03 BMI result Body Mass Index 22.1 Assessment & Plan Assessment & Plan (1) Viral infection: Code(s): B34.9 - Viral infection, unspecified Plan: Given the symptoms and negative initial COVID-19 results, a comprehensive evaluation for a viral upper respiratory infection is warranted through testing for Flu, COVID-19, and RSV. Symptomatic management should include acetaminophen for any febrile episodes and ibuprofen for body aches and sore throat relief. The patient's asthma management with albuterol should continue, with a focus on monitoring shortness of breath during coughing episodes. 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 Patient was informed and verbally consented to the use of an ambient scribe for clinic note documentation during this visit Orders: Orders SARS-CoV2/FLU/RSV Today B34.9 - Viral infection, unspecified Coding Level of Care Code Est Pt Level 3 (23161) Diagnoses Viral infection B34.9
[2024-12-04 09:03] VITALS: BP 124/78; PULSE 87; RESP 20; TEMP 37.1; O2SAT 97; BMI 22.1
== END 2024-12-04 09:18 | disposition home or self-care (01) ==
PROVIDERS: PCP Family Medicine; Visit Provider Physician Assistant
DX: B34.9 Viral infection, unspecified (principal)